=== PATIENT | male | born 1980 | race Native Hawaiian/Other Pacific Islander ===

== ENCOUNTER 2016-11-15 16:07 | Emergency (ER) | payer OTHER ==
[~2016-11-15] VITALS: Ht 177.8 cm; Wt 96.6 kg
[2016-11-15 16:27] VITALS: BP 145/97; TEMP 98.1
== END 2016-11-15 16:42 | disposition home or self-care (01) ==
LOC: ED 16:07
DX: K08.89 Other specified disorders of teeth and supporting structures (principal); S02.5XXA Fracture of tooth (traumatic), initial encounter for closed fracture
CPT/HCPCS: 99282

== ENCOUNTER 2018-02-23 15:01 | Emergency (ER) | payer OTHER ==
[~2018-02-23] VITALS: Ht 177.8 cm; Wt 97.5 kg
[2018-02-23 16:37] VITALS: BP 146/72; TEMP 99.7
== END 2018-02-23 16:40 | disposition home or self-care (01) ==
LOC: ED 15:01
DX: H66.91 Otitis media, unspecified, right ear (principal)
CPT/HCPCS: 99281

== ENCOUNTER 2019-04-06 11:45 | Emergency (ER) | payer OTHER ==
[~2019-04-06] VITALS: Ht 177.8 cm; Wt 113.4 kg
[2019-04-06 11:50] VITALS: TEMP 98.1
[2019-04-06 13:25] VITALS: BP 141/82
== END 2019-04-06 13:35 | disposition home or self-care (01) ==
LOC: ED 11:45
DX: S20.222A Contusion of left back wall of thorax, initial encounter (principal); S20.221A Contusion of right back wall of thorax, initial encounter; W20.8XXA Other cause of strike by thrown, projected or falling object, initial encounter; Y93.89 Activity, other specified; Y92.69 Other specified industrial and construction area as the place of occurrence of the external cause; Y99.0 Civilian activity done for income or pay
CPT/HCPCS: 99283

== ENCOUNTER 2019-09-23 13:37 | Emergency (ER) | payer OTHER ==
[~2019-09-23] VITALS: Ht 177.8 cm; Wt 120.2 kg
[2019-09-23 13:43] VITALS: BP 136/88; TEMP 97.7
== END 2019-09-23 15:48 | disposition home or self-care (01) ==
LOC: ED 13:37
DX: J10.1 Influenza due to other identified influenza virus with other respiratory manifestations (principal); J44.1 Chronic obstructive pulmonary disease with (acute) exacerbation
CPT/HCPCS: 87502; 87651; 96372; 99283; J2930

== ENCOUNTER 2019-10-28 16:09 | Emergency (ER) | payer OTHER ==
[~2019-10-28] VITALS: Ht 177.8 cm; Wt 111.1 kg
[2019-10-28 17:02] LABS: PLATELET COUNT 341 K/uL (142-355)
[2019-10-28 17:08] LABS: POTASSIUM 3.7 mmol/L (3.6-5.2)
[2019-10-28 18:05] VITALS: BP 135/76; TEMP 97.8
== END 2019-10-28 18:05 | disposition home or self-care (01) ==
LOC: ED 16:09
PROVIDERS: Emergency Medicine
DX: L03.115 Cellulitis of right lower limb (principal); W22.8XXA Striking against or struck by other objects, initial encounter
CPT/HCPCS: 80053; 85027; 96372; 99283; J0696; J1885

== ENCOUNTER 2022-12-26 17:16 | Outpatient (CLI) | payer OTHER | END 2022-12-26 20:02 | disposition home or self-care (01) | LOC: RAD 17:16 | PROVIDERS: ATTEND Nurse Practitioner | DX: M54.16 Radiculopathy, lumbar region (principal) ==